=== PATIENT | male | born 1985 | race Caucasian/White ===

== ENCOUNTER → 2016-11-04 | Outpatient (CLI) | payer OTHER ==
[2016-11-04 18:07] LABS: Basophils % (A) 1 %; CH 33.1; Eosinophils % (A) 1 %; HCT 41.4 % (39.0-53.0); HDW 2.11; HGB 13.5 gm/dL (13.0-17.5); Luc # (Auto) 0.19; Luc % (Auto) 4; Lymphocytes # (A) 1.5 k/uL (1.0-4.8); Lymphocytes % (A) 34 %; MCH 32.9 pg (25.0-35.0); MCHC 32.7 g/dL (31.0-37.0); MCV 100.8 fL (80.0-100.0); Mean Platelet Volume 6.4; Monocytes # (A) 0.3 k/uL (0-1.0); Monocytes % (A) 8 %; Neutrophils # (A) 2.3 k/uL (1.3-7.7); Neutrophils % (A) 52 %; RBC 4.11 m/uL (4.30-5.90); RDW 11.8 % (11.5-15.5); WBC 4.4 k/uL (3.8-10.6); WBC (Perox) 4.59
[2016-11-04 18:16] LABS: Anion Gap 13 mmol/L; Blood Urea Nitrogen 13 mg/dL (9-20); Carbon Dioxide 25 mmol/L (22-30); Chloride 107 mmol/L (98-107); Glucose 98 mg/dL (74-99); Potassium 4.3 mmol/L (3.5-5.1); Sodium 145 mmol/L (137-145)
[2016-11-04 18:17] LABS: ALT 26 U/L (21-72); AST 20 U/L (17-59); Alkaline Phosphatase 74 U/L (38-126); Calcium 10.5 mg/dL (8.4-10.2); Cholesterol 192 mg/dL (<200); HDL Cholesterol 53 mg/dL (40-60); Non-African American GFR(MDRD) >60 (>60 ml/min/1.73 sqM); Total Bilirubin 0.3 mg/dL (0.2-1.3); Total Protein 7.9 g/dL (6.3-8.2); Triglycerides 115 mg/dL (<150)
[2016-11-04 20:34] LABS: Hemoglobin A1C 4.9 % (4.2-6.1)
== END | disposition home or self-care (01) ==
LOC: LABWHC1 17:14
PROVIDERS: ATTEND Nurse Practitioner Psychiatric/Mental Health
DX: G40.909 Epilepsy, unspecified, not intractable, without status epilepticus (principal); F84.0 Autistic disorder
CPT/HCPCS: 36415; 80053; 80061; 80175; 80203; 80339; 83036; 84439; 84443; 85025

== ENCOUNTER 2016-12-10 09:49 | Emergency (ER) | payer OTHER ==
[2016-12-10 09:52] VITALS: RESP 20; TEMP 97.4
--- NOTE | 2016-12-10 10:15 | ED ---
Extremity Problem HPI - General Chief complaint: Extremity Problem,Nontraumatic Stated complaint: fall Time Seen by Provider: 12/10/16 09:53 Source: patient, RN notes reviewed Mode of arrival: wheelchair Limitations: language barrier, altered mental status - History of Present Illness Initial comments: Patient is a 31-year-old male presents emergency room for evaluation. Patient is mentally disabled and does not speak. Patient's father states that patient has a history of seizures. Patient's father states that patient had a seizure anything that he injured his left hip. Patient's father states over the past 2 days patient has been refusing to sit up while getting a bath and was limiting weight onto his left leg yesterday after getting home from his day program. Patient's father states that patient doesn't usually expressed pain. Patient's father states that when he presses over the lateral portion of his left hip patient eyes twinge a little bit. Patient's father denies any other injuries. Patient's father states he wants to make sure patient did not break his hip. - Related Data Home Medications Medication Instructions Recorded Confirmed Atomoxetine HCl [Strattera] 60 mg PO DAILY 01/06/14 12/10/16 QUEtiapine FUMARATE [QUEtiapine 150 mg PO HS 01/06/14 12/10/16 FUMARATE] Zonisamide [Zonisamide] 50 mg PO HS 01/06/14 12/10/16 cloNIDine HCL [cloNIDine HCL] 0.1 mg PO QAM 01/06/14 12/10/16 lamoTRIgine [Lamotrigine] 500 mg PO BID 01/06/14 12/10/16 Eslicarbazepine Acetate [Aptiom] 200 mg PO DAILY 12/10/16 12/10/16 Lacosamide [Vimpat] 50 mg PO DIRECTED 12/10/16 12/10/16 Zonisamide [Zonegran] 100 mg PO DAILY 12/10/16 12/10/16 cloNIDine HCL [Catapres] 0.2 mg PO HS 12/10/16 12/10/16 Allergies Allergy/AdvReac Type Severity Reaction Status Date / Time No Known Allergies Allergy Verified 12/10/16 10:10 Review of Systems ROS Statement: Those systems with pertinent positive or pertinent negative responses have been documented in the HPI. ROS Other: All systems not noted in ROS Statement are negative. Past Medical History Past Medical History: Neurologic Disorder, Seizure Disorder Additional Past Medical History / Comment(s): autism History of Any Multi-Drug Resistant Organisms: None Reported Past Surgical History: Hernia Repair Additional Past Surgical History / Comment(s): device in chest for seizures Past Psychological History: No Psychological Hx Reported Smoking Status: Never smoker Past Alcohol Use History: None Reported Past Drug Use History: None Reported General Exam - General Exam Comments Initial Comments: Sitting in exam room, no acute distress. Limitations: language barrier, altered mental status General appearance: alert, in no apparent distress Head exam: Present: atraumatic, normocephalic, normal inspection Eye exam: Present: normal appearance ENT exam: Present: normal exam Neck exam: Present: normal inspection Respiratory exam: Absent: respiratory distress Left Hip exam: Present: normal inspection, full ROM, tenderness (Patient does wince while palpating over the lateral portion of the left hip) Upper Leg exam: Present: normal inspection, full ROM. Absent: tenderness Knee exam: Present: normal inspection, full ROM. Absent: tenderness Lower Leg exam: Present: normal inspection, full ROM. Absent: tenderness Ankle exam: Present: normal inspection, full ROM. Absent: tenderness Foot/Toe exam: Present: normal inspection, full ROM. Absent: tenderness Neurovascular tendon exam: Present: no vascular compromise. Absent: pulse deficit (2+ dorsal pedal and posterior tibial pulses), abnormal cap refill ( capillary refill less than 2 seconds) Back exam: Present: normal inspection Neurological exam: Present: alert Psychiatric exam: Present: normal affect Skin exam: Present: warm, dry, intact, normal color. Absent: rash Course Vital Signs 12/10/16 12/10/16 09:50 11:37 Temperature 97.4 F L Pulse Rate 114 H 110 H Respiratory 20 20 Rate Blood Pressure 118/67 104/65 O2 Sat by Pulse 100 96 Oximetry Medical Decision Making - Medical Decision Making patient is a 31-year-old male presents emergency room for evaluation of left hip pain. Left hip/pelvis x-ray shows no acute fractures. Patient does not express any pain while palpating over left foot, ankle, lower leg, knee, upper leg. Patient does wince palpating the lateral portion of the hip. patient's father advised to give Tylenol or Motrin for pain and to follow-up with primary care provider if symptoms aren't improving in 7-10 days. Patient's father states he understands everything that was discussed with him. Return parameters discussed. Case discussed Dr. Comer. - Radiology Data Radiology results: report reviewed, image reviewed Disposition Clinical Impression: Contusion of left hip Disposition: HOME SELF-CARE Condition: Good Instructions: Hip Contusion (ED) Additional Instructions: Ice on and off for 10-15 minutes for the next 24-48 hours. Tylenol as needed for pain. Please follow-up with primary care provider if symptoms are not improving in 7-10 days. If new symptoms develop or symptoms worsen, please return to the ER. Referrals: Jesús Guthrie MD [Primary Care Provider] - 1-2 days Time of Disposition: 11:25
--- NOTE | 2016-12-10 10:52 | XR ---
EXAMINATION TYPE: XR Hip LT and AP Pelvis DATE OF EXAM: 12/10/2016 COMPARISON: NONE HISTORY: Pain TECHNIQUE: A single AP view of the pelvis is obtained. Two views of the left hip are obtained. FINDINGS: There is no acute fracture/dislocation evident in the pelvis. The hip and sacroiliac join ts appear symmetric and unremarkable. The overlying soft tissue appears unremarkable. Two views of one hip show no acute fracture or dislocation. No focal lytic or sclerotic lesion seen in the proximal left femur. The overlying soft tissue is unremarkable. Hypertrophic change of the a cetabulum correlate for femoral acetabular impingement. Calcification pelvis likely vascular. IMPRESSION: There is no acute fracture or dislocation in the pelvis or left hip.
[2016-12-10 11:38] VITALS: BP 104/65; PULSE 110
== END 2016-12-10 11:38 | disposition home or self-care (01) ==
LOC: EC 09:49
DX: S70.02XA Contusion of left hip, initial encounter (principal); R41.82 Altered mental status, unspecified; G40.909 Epilepsy, unspecified, not intractable, without status epilepticus; G58.9 Mononeuropathy, unspecified; Z79.899 Other long term (current) drug therapy; X58.XXXA Exposure to other specified factors, initial encounter
CPT/HCPCS: 73502; 99283

== ENCOUNTER 2016-12-14 17:24 | Emergency (ER) | payer OTHER ==
[2016-12-14 17:29] VITALS: BP 122/75; PULSE 118; RESP 20; TEMP 97.5
--- NOTE | 2016-12-14 18:34 | ED ---
Back Pain HPI - General Chief Complaint: Back Pain/Injury Stated Complaint: fall Time Seen by Provider: 12/14/16 18:14 Source: family, RN notes reviewed Limitations: language barrier, altered mental status, physical limitation - History of Present Illness Initial Comments: 31-year-old male presents emergency department with family for lump on his buttocks region. He notices other day and states that seems to have shrunk at this time. Patient seemed to be uncomfortable from this so parents states that he is very tolerable to pain. Patient is nonverbal. Patient had no fever no chills no history infections that region. They deny drainage and no redness at this time. - Related Data Home Medications Medication Instructions Recorded Confirmed Atomoxetine HCl [Strattera] 60 mg PO DAILY 01/06/14 12/10/16 QUEtiapine FUMARATE [QUEtiapine 150 mg PO HS 01/06/14 12/10/16 FUMARATE] Zonisamide [Zonisamide] 50 mg PO HS 01/06/14 12/10/16 lamoTRIgine [Lamotrigine] 500 mg PO BID 01/06/14 12/10/16 Eslicarbazepine Acetate [Aptiom] 200 mg PO DAILY 12/10/16 12/10/16 Lacosamide [Vimpat] 50 mg PO DIRECTED 12/10/16 12/10/16 Zonisamide [Zonegran] 100 mg PO DAILY 12/10/16 12/10/16 cloNIDine HCL [Catapres] 0.2 mg PO HS 12/10/16 12/10/16 Docusate [Colace] 100 mg PO BID PRN 12/14/16 12/14/16 Previous Rx's Medication Instructions Recorded Sulfamethox-Tmp 800-160Mg [Bactrim 1 each PO Q12HR #20 tab 12/14/16 Ds] Allergies Allergy/AdvReac Type Severity Reaction Status Date / Time No Known Allergies Allergy Verified 12/14/16 17:29 Review of Systems ROS Statement: Those systems with pertinent positive or pertinent negative responses have been documented in the HPI. ROS Other: All systems not noted in ROS Statement are negative. Past Medical History Past Medical History: Neurologic Disorder, Seizure Disorder Additional Past Medical History / Comment(s): autism History of Any Multi-Drug Resistant Organisms: None Reported Past Surgical History: Hernia Repair Additional Past Surgical History / Comment(s): device in chest for seizures Past Psychological History: No Psychological Hx Reported Smoking Status: Never smoker Past Alcohol Use History: None Reported Past Drug Use History: None Reported General Exam Limitations: language barrier, altered mental status, physical limitation General appearance: alert, in no apparent distress Respiratory exam: Present: normal lung sounds bilaterally. Absent: respiratory distress, wheezes, rales, rhonchi, stridor Cardiovascular Exam: Present: regular rate, normal rhythm, normal heart sounds. Absent: systolic murmur, diastolic murmur, rubs, gallop, clicks Skin exam: Present: other (In the coccyx region there is a very small palpable cystic structure consistent with pilonidal cyst.) Course Vital Signs 12/14/16 17:27 Temperature 97.5 F L Pulse Rate 118 H Respiratory 20 Rate Blood Pressure 122/75 O2 Sat by Pulse 96 Oximetry Medical Decision Making - Medical Decision Making 31-year-old male presented for cyst on his buttocks region. Patient has a very early polynomial cyst. Patient was placed on antibiotics there is nothing to I& D at this time. Patient will follow-up with PCP return parameters were discussed. Disposition Clinical Impression: Pilonidal cyst Disposition: HOME SELF-CARE Condition: Stable Instructions: Pilonidal Cyst (ED) Additional Instructions: Please return to the Emergency Department if symptoms worsen or any other concerns. Prescriptions: Sulfamethox-Tmp 800-160Mg [Bactrim Ds] 1 each PO Q12HR #20 tab Referrals: Jesús Guthrie MD [Primary Care Provider] - 1-2 days Time of Disposition: 18:33
== END 2016-12-14 18:51 | disposition home or self-care (01) ==
LOC: EC 17:24
DX: L05.91 Pilonidal cyst without abscess (principal); G40.909 Epilepsy, unspecified, not intractable, without status epilepticus; F84.0 Autistic disorder; Z79.899 Other long term (current) drug therapy
CPT/HCPCS: 99283

== ENCOUNTER → 2017-10-27 | Outpatient (CLI) | payer OTHER ==
[2017-10-27 18:01] LABS: Basophils % (A) 1 %; Eosinophils # (A) 0.1 k/uL (0-0.7); Eosinophils % (A) 1 %; HCT 42.4 % (39.0-53.0); HGB 14.1 gm/dL (13.0-17.5); Lymphocytes # (A) 1.3 k/uL (1.0-4.8); Lymphocytes % (A) 29 %; MCH 32.5 pg (25.0-35.0); MCHC 33.4 g/dL (31.0-37.0); MCV 97.3 fL (80.0-100.0); Mean Platelet Volume 7.1; Monocytes # (A) 0.4 k/uL (0-1.0); Monocytes % (A) 10 %; Neutrophils # (A) 2.6 k/uL (1.3-7.7); Neutrophils % (A) 57 %; Platelet Count 229 k/uL (150-450); RBC 4.36 m/uL (4.30-5.90); RDW 11.6 % (11.5-15.5); WBC 4.6 k/uL (3.8-10.6)
[2017-10-27 18:23] LABS: ALT 27 U/L (21-72); AST 20 U/L (17-59); Albumin 4.8 g/dL (3.5-5.0); Alkaline Phosphatase 90 U/L (38-126); Anion Gap 16 mmol/L; Blood Urea Nitrogen 17 mg/dL (9-20); Calcium 10.7 mg/dL (8.4-10.2); Carbon Dioxide 27 mmol/L (22-30); Chloride 106 mmol/L (98-107); Cholesterol 213 mg/dL (<200); Glucose 86 mg/dL (74-99); HDL Cholesterol 55 mg/dL (40-60); LDL Cholesterol,Calculated 127 mg/dL (0-99); Potassium 4.2 mmol/L (3.5-5.1); Sodium 149 mmol/L (137-145); Total Bilirubin 0.2 mg/dL (0.2-1.3); Total Protein 7.7 g/dL (6.3-8.2); Triglycerides 153 mg/dL (<150)
[2017-10-27 18:39] LABS: T4, Free (Free Thyroxine) 0.78 ng/dL (0.78-2.19)
[2017-10-28 01:06] LABS: Vitamin D 25 Hydroxy 27.8 ng/mL (30.0-100.0)
[2017-10-28 01:58] LABS: Hemoglobin A1C 4.8 % (4.0-6.0)
[2017-10-29 08:49] LABS: Lamotrigine (Lamictal) 9.8 ug/mL (2.0-15.0)
== END | disposition home or self-care (01) ==
LOC: LABWHC1 17:31
PROVIDERS: ATTEND Psychiatry & Neurology Psychiatry
DX: G40.209 Localization-related (focal) (partial) symptomatic epilepsy and epileptic syndromes with complex partial seizures, not intractable, without status epilepticus (principal); R56.9 Unspecified convulsions; Z79.899 Other long term (current) drug therapy
CPT/HCPCS: 36415; 80053; 80061; 80175; 80203; 82306; 82607; 83036; 84439; 84443; 85025

== ENCOUNTER → 2021-06-06 | Outpatient (CLI) | payer OTHER ==
[2021-06-06 18:44] LABS: Basophils # (A) 0.05 X 10*3/uL (0.00-0.10); Basophils % (A) 0.7 %; Eosinophils # (A) 0.02 X 10*3/uL (0.04-0.35); Eosinophils % (A) 0.3 %; HCT 40.1 % (39.6-50.0); HGB 12.5 g/dL (13.0-17.0); Lymphocytes # (A) 1.36 X 10*3/uL (0.90-5.00); Lymphocytes % (A) 19.9 %; MCH 32.3 pg (27.0-32.0); MCHC 31.2 g/dL (32.0-37.0); MCV 103.6 fL (80.0-97.0); Mean Platelet Volume 9.8 fL (9.5-12.2); Monocytes # (A) 0.82 X 10*3/uL (0.20-1.00); Neutrophils # (A) 4.55 X 10*3/uL (1.80-7.70); Neutrophils % (A) 66.5 %; Platelet Count 243 X 10*3/uL (140-440); RBC 3.87 X 10*6/uL (4.40-5.60); RDW 11.5 % (11.5-14.5); WBC 6.84 X 10*3/uL (4.50-10.00)
[2021-06-07 00:36] LABS: ALT 17 U/L (10-49); AST 17 U/L (14-35); Alkaline Phosphatase 96 U/L (41-126); Bilirubin, Conjugated <0.20 mg/dL (0.20-0.40); Chol/HDL Ratio 3.16 Ratio; Globulin 2.5 g/dL (1.6-3.3); Glucose 97 mg/dL (70-110); LDL Cholesterol,Calculated 110.3 mg/dL (0.0-131.0); Total Bilirubin <0.20 mg/dL (0.30-1.20); Total Protein 7.5 g/dL (6.2-8.2); VLDL Calculation 16.22 mg/dL (5.00-40.00)
== END | disposition home or self-care (01) ==
LOC: LABWHC1 15:04
PROVIDERS: ATTEND Psychiatry & Neurology Neurology
DX: G40.209 Localization-related (focal) (partial) symptomatic epilepsy and epileptic syndromes with complex partial seizures, not intractable, without status epilepticus (principal); Z79.899 Other long term (current) drug therapy
CPT/HCPCS: 36415; 80061; 80076; 80175; 80183; 80203; 80235; 82947; 83036; 84439; 84443; 85025

== ENCOUNTER 2022-05-11 10:24 | Day surgery (SDC) | payer OTHER ==
[2022-05-07 09:31] VITALS: BMI 22.8
[~2022-05-11 10:24] MED LIST: DEXAMETHASONE SOD PHOSPHATE 4 MG/ML 1 ML VIAL IV ONE; HYDROmorphone 0.5 MG/0.5 ML SYRINGE IVP PRN; LACTATED RINGERS 1,000 ML IV SCH; LIDOCAINE 1% (10MG/ML) FOR IV START INTRADERMA PRN; MIDAZOLAM 2 MG/2 ML VIAL IV PRN; ONDANSETRON 4 MG/2 ML VIAL IVP ONE
[2022-05-11] MEDS ORDERED: PHENYLEPHRINE-0.9% NACL SYG 1,000 MCG/10 ML SYRINGE ONE (12:23)
[2022-05-11] MEDS ORDERED: fentaNYL (PF) 50 MCG/ML 2 ML AMP ONE (12:23)
[2022-05-11] MEDS ORDERED: HYDROmorphone (PF) 1 MG/ML ONE (12:23)
[2022-05-11] MEDS ORDERED: MIDAZOLAM 2 MG/2 ML VIAL ONE (12:23)
[2022-05-11] MEDS ORDERED: LIDOCAINE 2% INJ 20 MG/ML (2 ML VIAL) ONE (12:23)
[2022-05-11] MEDS ORDERED: DEXAMETHASONE SOD PHOS (MDV) 100 MG/10 ML VIAL ONE (12:23)
[2022-05-11] MEDS ORDERED: PROPOFOL 10 MG/ML 20 ML VIAL IV ONE (12:23)
[2022-05-11] MEDS ORDERED: KETOROLAC 30 MG/ML 1 ML VIAL ONE (12:23)
[2022-05-11] MEDS ORDERED: LIDOCAINE 1%-EPI 1:100,000 20 ML VIAL SQ ONE (13:02)
[2022-05-11] MEDS ORDERED: LIDOCAINE 0.5% (PF) 5 MG/ML (50 ML SDV) SQ ONE (13:03)
[2022-05-11] MEDS ORDERED: LACTATED RINGERS 1,000 ML IV ONE (14:39)
[2022-05-11 15:25] VITALS: RESP 16; TEMP 98.8
[2022-05-11 16:46] VITALS: BP 118/67; PULSE 112
--- NOTE | 2022-05-12 17:14 | P.OP ---
Date of Procedure: 05/11/22 Preoperative Diagnosis: Right thumb Rivera fracture Postoperative Diagnosis: same Procedure(s) Performed: Right first metacarpal open reduction internal fixation Implants: Arthrex 2.0 screws x 4 Anesthesia: KENNETHA, local Surgeon: Elidia Taylor English Lecturer #1: Shannan Douglass Estimated Blood Loss (ml): 10 Condition: stable Disposition: PACU Indications for Procedure: Jeff is a 36 year old male with MR. He also has a history of seizures. During a recent seizure on 04/21/22 he sustained a fracture to the base of his right first metacarpal. It was displaced and there was a long discussion with the patient's father, his POA about treatment options. Initially, the decision was made to treat in a cast and accept the deformity. However, the decision was made to change directions and restore as much of the joint as possible. This is Jeff's dominant hand and although he does not do many activities, he does use this hand to feed himself. Description of Procedure: The patient, operative extremity, and procedure were identified in the preop holding area. After informed consent was obtained, the patient was brought back with his father to the operating room. General anesthesia was then administered by the anesthesia team and the patient's father was ushered to the waiting area. The extremity was then prepped and draped in normal sterile fashion with a tourniqet along the patient's brachium. A formal timeout was performed and the tourniqet inflated. A longitudinal incision was made along the volar edge of the 1st metacarpal. Dissection was taken down through the subq tissue with care taken to protect the cutaneous nerves. The volar musculature was then subperiosteally lifted from the metacarpal. Subperiosteal dissection was continued dorsally with care taken to protect the extensor tendons. The fracture was identified at the base. The volar portion or rivera's fracture was well redueced but the remainder of the metacarpal including about 60 percent of the articular surface was dislocated. A reduction was attempted but the musculature was too contracted. The adductor tendon was then cut in a stepwise fashion to counter the deforming force. This allowed for traction and reasonable reduction. Exposure of the fracture revealed more comminution than expected. Several attempts were made at an anatomic reduction of the joint surface but because of comminution and some callous formation, there was still some irregularity to the joint surface. The joint was congruent however. Several orthogonal screws were inserted to secure the articular pieces. The thumb was gently taken through range of motion and found to be stable. The wound was copiously irrigated and the abductor tendon was repaired in an elongated fashion with 3.0 vicryl. The periosteal sleeve was repaired. The tourniquet was let down and the remainder of the wound was closed in a layered fashion with 4.0 monocryl and skin glue. Wound was dressed with adaptic, gauze, and a thumb spica cast. Patient was aroused by the anesthesia team and brought to PACU in stable condition.
== END 2022-05-11 16:47 | disposition home or self-care (01) ==
LOC: OR 10:24
PROVIDERS: ATTEND Orthopaedic Surgery Hand Surgery
DX: S62.211A Bennett's fracture, right hand, initial encounter for closed fracture (principal); G40.909 Epilepsy, unspecified, not intractable, without status epilepticus; X58.XXXA Exposure to other specified factors, initial encounter
CPT/HCPCS: 26615; J1100; J0690; J2405; J2001

== ENCOUNTER → 2024-05-12 | Outpatient (CLI) | payer OTHER ==
[2024-05-12 15:46] LABS: Basophils # (A) 0.04 X 10*3/uL (0.00-0.10); Basophils % (A) 0.8 %; Eosinophils # (A) 0.06 X 10*3/uL (0.04-0.35); Eosinophils % (A) 1.2 %; HCT 36.7 % (39.6-50.0); HGB 12.2 g/dL (13.0-17.0); Lymphocytes # (A) 1.24 X 10*3/uL (0.90-5.00); Lymphocytes % (A) 25.1 %; MCH 33.3 pg (27.0-32.0); MCHC 33.2 g/dL (32.0-37.0); MCV 100.3 FL (80.0-97.0); Mean Platelet Volume 10.3 FL (9.5-12.2); Monocytes # (A) 0.67 X 10*3/uL (0.20-1.00); Monocytes % (A) 13.6 %; NRBC Per 100 WBC 0 X 10*3/uL (0.00-0.01); Neutrophils # (A) 2.91 X 10*3/uL (1.80-7.70); Neutrophils % (A) 58.9 %; Platelet Count 206 X 10*3/uL (140-440); RBC 3.66 X 10*6/uL (4.40-5.60); RDW 11.6 % (11.5-14.5); WBC 4.94 X 10*3/uL (4.50-10.00)
[2024-05-12 16:20] LABS: ALT 74 U/L (10-49); AST 42 U/L (14-35); Albumin 4.7 g/dL (3.8-4.9); Albumin/Globulin Ratio 1.74 Ratio (1.60-3.17); Alkaline Phosphatase 113 U/L (41-126); Bilirubin, Conjugated <0.20 mg/dL (0.20-0.40); Bilirubin,Unconjugated >0 mg/dL (0.20-1.00); Blood Urea Nitrogen 14.8 mg/dL (9.0-27.0); Calcium 10.1 mg/dL (8.7-10.3); Carbon Dioxide 25.6 mmol/L (21.6-31.8); Chloride 104 mmol/L (96-109); Globulin 2.7 g/dL (1.6-3.3); Glucose 90 mg/dL (70-110); PSA Annual Screen 0.278 ng/mL (0.000-4.000); Potassium 4.4 mmol/L (3.5-5.5); Sodium 142 mmol/L (135-145); Total Bilirubin 0.2 mg/dL (0.3-1.2); Total Protein 7.4 g/dL (6.2-8.2)
[2024-05-13 13:05] LABS: Lamotrigine (Lamictal) 17.4 ug/mL (2.0-15.0)
== END | disposition home or self-care (01) ==
LOC: LABWHC1 10:51
PROVIDERS: ATTEND Psychiatry & Neurology Neurology
DX: Z12.5 Encounter for screening for malignant neoplasm of prostate (principal); K56.0 Paralytic ileus; G40.019 Localization-related (focal) (partial) idiopathic epilepsy and epileptic syndromes with seizures of localized onset, intractable, without status epilepticus; Z79.899 Other long term (current) drug therapy
CPT/HCPCS: 80053; 80175; 80183; 82248; 82465; 84443; 84478; 85025; 82306; 80235; 36415; G0103